=== PATIENT | male | born 1965 | race Caucasian/White ===

== ENCOUNTER 2016-06-14 11:05 | Emergency (ER) | payer MEDICAID ==
[2016-06-14 11:21] VITALS: RESP 18; TEMP 97.9
--- NOTE | 2016-06-14 12:04 | UCPHY ---
H & P Time Seen by Provider: 06/14/16 11:43 Patient Type: Established HPI/ROS: CHIEF COMPLAINT: Headache HISTORY OF PRESENT ILLNESS: This is a 50-year-old man who is been ill with a headache, sinus congestion, fullness in his ears, and postnasal drip for a week. Patient has had no fevers. He has been taking Tylenol with minimal relief. No cough or chest pain. No shortness of breath. No nausea or vomiting. Not the worst headache of his life. Gradual onset. No fever, chills, chest pain, shortness of breath, palpitations, vomiting, diarrhea, urinary complaints, lightheadedness. REVIEW OF SYSTEMS: Aside from elements discussed in the HPI, a comprehensive 10-point review of systems was reviewed and is negative. PAST MEDICAL HISTORY: Hypertension. SOCIAL HISTORY: Smoker. Occasional alcohol use. VITAL SIGNS: see nurse's notes. GENERAL: Well-developed, well-nourished, in no acute distress. Sounds very congested. HEENT: Atraumatic Eyes: PERRL, EOMI, no conjunctival injection. Ears: Bilateral serous otitis. No erythema. Tenderness to percussion over the frontal and maxillary sinuses. Nose: No discharge. Mouth: moist mucous membranes. Pharynx: no erythema, no exudates, no swelling, no abscess. Uvula is midline. NECK: Supple, no adenopathy, no meningismus, no tenderness. Negative Kernig's and Brudzinski's. LUNGS: Clear to auscultation bilaterally, no wheezes, rhonchi or rales. CARDIAC: Regular rate and rhythm, no rubs, murmurs or gallops. ABDOMEN: Soft, nontender, bowel sounds normal. BACK: No CVA tenderness. EXTREMITIES: Normal, no edema, FROM. NEURO: Alert and oriented, grossly nonfocal. SKIN: Warm and dry, no rash. PSYCHIATRIC: Normal mentation, no agitation. Smoking Status: Current every day smoker Constitutional: Initial Vital Signs Temperature (C) 36.6 C 06/14/16 11:19 Heart Rate 49 L 06/14/16 11:19 Respiratory Rate 18 06/14/16 11:19 Blood Pressure 164/101 H 06/14/16 11:19 O2 Sat (%) 97 06/14/16 11:19 O2 Delivery Mode Room Air Allergies/Adverse Reactions: NSAIDS (Non-Steroidal Anti-Inflamma Allergy (Verified 06/14/16 11:18) Sulfa (Sulfonamide Antibiotics) Allergy (Verified 06/14/16 11:18) Home Medications: Medication Instructions Recorded Lexapro 06/28/14 Metoprolol Succinate 06/28/14 Tylenol 325mg (OTC) 09/02/14 Amoxicillin/Clavulanate Pot 875 mg PO BID #14 tab 06/14/16 [Augmentin 875 MG TAB (*)] Hydrocodone/APAP 5/325 [[place] 1 tab PO Q6H PRN #10 tab 06/14/16 5/325 (RX)] Neurontin 06/14/16 traZODone 06/14/16 Medical Decision Making ED Course/Re-evaluation: 50-year-old male presents reporting a headache which has been gradually worsening as his symptoms of nasal congestion, nasal discharge, fullness in his ears, and sore throat have progressed. He was placed on Augmentin and advised to use a decongestant. I suggested he also obtain Flonase nasal spray. Differential Diagnosis: After history was obtained, and the physical exam performed, a differential for the patient's symptom complex was considered including, but not limited to, upper respiratory infection, sinusitis, otitis media, bronchitis, meningitis, encephalitis. Departure - Departure Disposition: Home, Routine, Self-Care Clinical Impression: Headache Qualifiers: Headache type: unspecified Headache chronicity pattern: acute headache Intractability: not intractable Qualified Code(s): R51 - Headache Sinusitis Qualifiers: Sinusitis location: unspecified location Chronicity: acute Recurrence: not specified as recurrent Qualified Code(s): J01.90 - Acute sinusitis, unspecified Condition: Good Instructions: Sinusitis (ED), Acute Headache (ED) Additional Instructions: Please obtain an [id number] decongestant. Ask the pharmacist to guide you to an appropriate decongestant to take with your history of hypertension. Take Flonase nasal spray as directed. Use Tylenol or narcotics for your headache pain. Please take antibiotic as directed. Follow up with your primary care physician days or return to Urgent Care if not improving as expected in the next several days or if you are worse. Referrals: [facility],. [Primary Care Provider] - As per Instructions Prescriptions: Amoxicillin/Clavulanate Pot [Augmentin 875 MG TAB (*)] 875 mg PO BID #14 tab Hydrocodone/APAP 5/325 [[place] 5/325 (RX)] 1 tab PO Q6H PRN #10 tab PRN Reason: Pain - PQRS PQRS Measurement: Not applicable
[2016-06-14 12:13] VITALS: BP 155/67; PULSE 82; O2SAT 95
== END 2016-06-14 12:15 | disposition home or self-care (01) ==
LOC: CED 11:05
DX: R51 Headache (principal); J01.90 Acute sinusitis, unspecified; I10 Essential (primary) hypertension
CPT/HCPCS: 99214-PO; G0463-PO

== ENCOUNTER 2016-08-20 15:48 | Emergency (ER) | payer MEDICAID ==
[2016-08-20] MEDS ORDERED: LORazepam 1 MG TAB PO ONE (16:06)
[2016-08-20 16:07] VITALS: RESP 16; TEMP 99.1; O2SAT 94
--- NOTE | 2016-08-20 16:10 | EDPHY ---
H & P Time Seen by Provider: 08/20/16 15:51 HPI/ROS: CHIEF COMPLAINT: Depression HISTORY OF PRESENT ILLNESS: Patient is a 50-year-old male with a history of PTSD, anxiety and depression who presents to the emergency department suicidal and homicidal thoughts. Patient states he has been undergoing treatment for some time. Over the past week his symptoms have worsened. He states "I am just done with this life." Patient is concerned he will be unable to control himself. "Wrong huong at the right time." He states he would shoot himself if he had access to a firearm. He does not have a gun. He also states that he would type breaks to his foot and up into the leg. He has been taking his medications as directed. He denies any ingestion. He states he has drank alcohol today. He uses marijuana. No other drug use. REVIEW OF SYSTEMS: My complete review of systems is negative except as mentioned in the HPI. Past Medical/Surgical History: Includes PTSD, anxiety, depression, hypertension Past surgical history: Includes cholecystectomy, appendectomy Social history: The patient smokes marijuana. He smokes cigarettes. He uses alcohol. Denies other drug use. Smoking Status: Current every day smoker Physical Exam: GENERAL: Moderate distress. Anxious. Tearful. HEENT: Eyes normal to inspection, normal pharynx, no signs of dehydration. NECK: No thyromegaly, no lymphadenopathy, supple. RESPIRATORY: Clear to auscultation bilaterally, no rales, rhonchi or wheezing. CVS: Regular rate and rhythm, no rubs, murmurs, or gallops. ABDOMEN: Soft, nontender, nondistended, no organomegaly. BACK: Normal to inspection, no CVA tenderness. SKIN: Normal color, no rash, warm, dry. No pallor. EXTREMITIES: No pedal edema, no joint swelling. NEURO/PSYCH: Alert and oriented x3, tearful and anxious, normal motor sensory exam. No obvious cranial nerve deficit. Constitutional: Initial Vital Signs Temperature (C) 37.3 C 08/20/16 15:48 Heart Rate 65 08/20/16 15:48 Respiratory Rate 16 08/20/16 15:48 Blood Pressure 112/70 08/20/16 15:48 O2 Sat (%) 94 08/20/16 15:48 O2 Delivery Mode Room Air Allergies/Adverse Reactions: NSAIDS (Non-Steroidal Anti-Inflamma Allergy (Verified 08/20/16 16:01) Sulfa (Sulfonamide Antibiotics) Allergy (Verified 08/20/16 16:01) Home Medications: Medication Instructions Recorded Lexapro 06/28/14 Metoprolol Succinate 06/28/14 traZODone 06/14/16 Medical Decision Making ED Course/Re-evaluation: In the emergency department I discussed my initial plan with the patient. I discussed treatment options. Patient was given Ativan 1 mg orally. I contacted the [facility] ED director. I was informed that the patient should be transfered to [facility] via PD. I contacted [facility]. Dr. Sood accepted the patient for transfer. PD contacted. The Mental health hold was completed. EMTALA completed. Due to concern for staff safety and limited security in ED, I waited police arrival to inform the patient that he was on a hold. I further informed him that he was being transferred to [facility]. I answered all his questions. Differential Diagnosis: My differential includes but is not limited to anxiety, depression, suicidal ideation, homicidal ideation, alcohol abuse, marijuana use Departure - Departure Disposition: Acute Care Hospital Not [facility] Clinical Impression: Suicidal ideation, Homicidal ideation Condition: [facility]
[2016-08-20 16:58] VITALS: BP 108/77; PULSE 62
== END 2016-08-20 16:40 | disposition short-term general hospital (02) ==
LOC: CED 15:48
DX: R45.851 Suicidal ideations (principal); R45.850 Homicidal ideations; F17.210 Nicotine dependence, cigarettes, uncomplicated; I10 Essential (primary) hypertension

== ENCOUNTER 2016-08-27 16:05 | Observation (INO) | payer MEDICAID ==
--- NOTE | 2016-08-27 16:01 | EDPHY ---
H & P Time Seen by Provider: 08/27/16 16:01 HPI/ROS: CHIEF COMPLAINT: Chest pain HISTORY OF PRESENT ILLNESS: This patient is a 50 year old male who presents to the Emergency Department via EMS complaining of acute onset left-sided chest pain with associated diaphoresis beginning at 1330 today and persisting to the present. He states that he was in a counseling appointment with [facility] when he first felt a twinge to his lower left anterior chest that subsided on its own. Since then, the pain has returned and has been increasing in frequency and severity. At time of arrival, he describes his pain as waxing and waning at moderate severity. The pain is not pleuritic. He has had no chest trauma. He denies cough or shortness of breath. No risk factors for PE. He denies nausea, vomiting, or dyspnea. He states that he feels anxious but reports that this is how he normally feels. Medical history includes PTSD, depression, and anxiety. Cardiac risk factors: The patient admits to smoking one pack of cigarettes daily. He is taking Norvasc for hypertension. He had been taking metoprolol but this was discontinued about a week ago during his stay in a psychiatric facility. He was changed to Norvasc and states that his blood pressure has been poorly controlled since then. No personal or familial history of CAD. REVIEW OF SYSTEMS: A ten point review of systems was performed and is negative with the exception of the items mentioned in the HPI. Source: Patient, EMS - Medical/Surgical History PMH: 1. Anxiety, depression, PTSD 2. Hypertension (Norvasc) 3. Cholecystectomy 4. Appendectomy Prior medical records reviewed. The patient was last seen in the ED one week ago on 08/20 for suicidal ideation and was transferred to [facility] at that time. - Social History Smoking Status: Current every day smoker Additional Social History: - Fiance at bedside. - Currently lives at [facility]. - History of alcohol abuse, narcotic abuse, IV drug abuse. Now drinks 2-3 beers weekly. No illicit drug use. - Smokes marijuana occasionally. - Smokes tobacco regularly. - Physical Exam Exam: General Appearance: Alert. Vital signs reviewed. Blood pressure 170/105. Eyes: Pupils equal and round, no conjunctival injection, no discharge. Anicteric. ENT, Mouth: Mucous membranes are moist, no oropharyngeal erythema or edema. Neck: No lymphadenopathy, supple. Respiratory: Lungs are clear to auscultation; no wheezes, rales, or rhonchi. Cardiovascular: Regular rate and rhythm; no murmur, rub, or gallop. Gastrointestinal: Abdomen is soft and nontender, no masses or organomegaly, bowel sounds normal. Skin: Warm and dry, no rashes on exposed skin, normal color. Back: Nontender to palpation over the thoracolumbar spine. No CVAT. Extremities: No lower extremity edema, no calf tenderness or swelling. Neurological: Alert and oriented. Moving all four extremities easily and equally. Psychiatric: Anxious affect. Slightly agitated, having difficulty staying still, fidgety. Constitutional: Initial Vital Signs Temperature (C) 36.9 C 08/27/16 16:18 Heart Rate 95 08/27/16 16:18 Respiratory Rate 16 08/27/16 16:18 Blood Pressure 170/105 H 08/27/16 16:18 O2 Sat (%) 96 08/27/16 16:18 O2 Delivery Mode Room Air Allergies/Adverse Reactions: NSAIDS (Non-Steroidal Anti-Inflamma Allergy (Verified 08/27/16 16:18) Sulfa (Sulfonamide Antibiotics) Allergy (Verified 08/27/16 16:18) Home Medications: Medication Instructions Recorded Divalproex ER [Depakote ER 500 MG 500 mg PO BID 08/27/16 (*)] Escitalopram Oxalate [Lexapro] 20 mg PO DAILY 08/27/16 Hydrochlorothiazide [HCTZ (*)] 12.5 mg PO DAILY 08/27/16 Hydroxyzine Pamoate [Vistaril] 50 mg PO TID PRN 08/27/16 Propranolol HCl [Inderal 10mg (*)] 10 mg PO DAILY 08/27/16 amLODIPine BESYLATE [Norvasc 10 mg 10 mg PO DAILY 08/27/16 (*)] traZODone [traZODone 150MG (*)] 150 mg PO HS 08/27/16 Acetaminophen [Tylenol 325mg (*)] 650 mg PO Q4HRS PRN #0 tab 08/28/16 Oxycodone HCl 5 mg PO TID PRN #14 capsule 08/28/16 Medical Decision Making - Diagnostics EKG Interpretation: The 12 lead EKG was interpreted by myself: Sinus rhythm, rate 93; baseline artifact; no acute ischemic changes. See hard copy and/or "tracemaster" electronic copy for interpretation. A 2nd EKG was performed when he was slightly less anxious. There continue to be baseline artifact but no acute ischemic changes. ED Course/Re-evaluation: 1609: Took EMS report at bedside. Vitals in transport: BP 140/90, HR 102, O2 sat 97% on RA. Patient remained in sinus tachycardia on wire splicer with no ST elevation. This 50-year-old male presents via EMS with acute onset left-sided chest pain beginning at 1330, approximately three hours prior to arrival. He reports associated diaphoresis but no nausea, dyspnea, or pain radiation. Cardiac risk factor includes daily tobacco use; no personal or familial history of CAD. He has a robust psychiatric history and has been seen in this facility multiple times for suicidal ideation. On presentation, he appears anxious and is tachycardic with normal rhythm. Will proceed with labs, EKG, and chest x-ray. EKG obtained and is non-ischemic. Labs obtained and are unremarkable. Troponin is negative. The patient was administered two doses of Nitroglycerin by RN without improvement to his chest pain. He refused the third dose. Chest x-ray reviewed by Dr. Casas, radiology, I reviewed the images. No acute pulmonary disease. 1726: I discussed imaging, EKG, and lab results with the patient. He remain anxious at his time. 1mg IV Ativan will be administered for anxiety. He describes his pain now as being anterolateral located at the base of his left ribcage. I re-examined him at that site. No rib tenderness, no crepitus. No evidence of skin rash that would indicate shingles. He is moving about in the bed, which both he and his fiancee is typical for him to be fidgety. However, he also reports that he has a history of kidney stone in the remote past. UA ordered to assess for hematuria. He cannot take anti-inflammatory medication because of GI distress. He is trying to avoid any opiates or benzodiazepines because of his history of addiction. He did agree to take some Ativan for his anxiety, which I think will be helpful. 1750: On reevaluation, the patient is less anxious but reports persistent pain to his left ribcage, radiating posteriorly. 1825: The patient is much calmer after receiving Ativan and IV Dilaudid. Will repeat EKG. Urinalysis negative for hematuria. Kidney stone less likely. D-dimer obtained and is 0.25. Risk factors for PE I think that PE is unlikely given his low Wells score. EKG obtained and remains normal. I discussed with the patient the option of returning home to [facility] or admission for cardiac observation. He prefers admission. His chest pain remains unrelieved. At that troponin he had been experiencing pain for about 3 hours. I do feel that repeat troponin is reasonable, however I think it is most likely that his symptoms are related to anxiety. 190: Consultation with Dr. Horan, hospitalist, who accepts admission. Differential Diagnosis: Chest pain including but not limited to anxiety, pneumothorax, myocardial ischemia, pulmonary embolus, chest wall pain, pleural inflammation and pulmonary infectious causes. - Data Points Laboratory Results: Laboratory Results 08/27/16 16:11 08/27/16 16:11 Medications Given: Discontinued Medications Acetaminophen (Tylenol) 1,000 mg PO EDNOW ONE Stop: 08/27/16 18:10 Last Admin: 08/27/16 18:32 Dose: 1,000 mg Amlodipine Besylate (Norvasc) 10 mg PO DAILY SKYE Stop: 02/24/17 08:59 Last Admin: 08/28/16 12:00 Dose: 10 mg Divalproex Sodium (Depakote Er) 500 mg PO BID SKYE Stop: 02/24/17 08:59 Last Admin: 08/28/16 12:00 Dose: 500 mg Hydrochlorothiazide (Microzide) 12.5 mg PO DAILY SKYE Stop: 02/24/17 08:59 Last Admin: 08/28/16 12:00 Dose: 12.5 mg Hydromorphone HCl (Dilaudid) 0.5 mg IVP EDNOW ONE Stop: 08/27/16 17:53 Last Admin: 08/27/16 18:08 Dose: 0.5 mg Hydromorphone HCl (Dilaudid) 0.5 mg IVP EDNOW ONE Stop: 08/27/16 19:28 Last Admin: 08/27/16 19:28 Dose: 0.5 mg Lorazepam (Ativan Injection) 1 mg IVP EDNOW ONE Stop: 08/27/16 17:22 Last Admin: 08/27/16 17:43 Dose: 1 mg Lorazepam (Ativan) 0.5 - 1 mg PO Q4HRS PRN PRN Reason: Anxiety, Able to Take PO Stop: 02/23/17 22:54 Last Admin: 08/28/16 08:30 Dose: 1 mg Miscellaneous Medication (Escitalopram Oxalate [Lexapro]) 20 mg PO DAILY SKYE Stop: 02/24/17 08:59 Last Admin: 08/28/16 12:02 Dose: Not Given Nitroglycerin (Nitrostat) 0.4 mg SL Q5M PRN PRN Reason: Chest Pain Stop: 08/27/16 16:41 Last Admin: 08/27/16 16:51 Dose: 0.4 mg Oxycodone HCl (Oxycodone Ir) 5 - 10 mg PO Q3HRS PRN PRN Reason: Pain, Severe Able to Take PO Stop: 09/06/16 22:54 Last Admin: 08/28/16 09:58 Dose: 10 mg Propranolol HCl (Inderal) 10 mg PO DAILY SKYE Stop: 02/24/17 08:59 Last Admin: 08/28/16 12:00 Dose: 10 mg Departure - Departure Disposition: [facility] Acute Clinical Impression: Atypical chest pain Condition: Good Report Scribed for: Mavis Diaz Report Scribed by: Savanah Gould Date of Report: 08/27/16 Time of Report: 16:01 Physician Review and Approval Statement: 08/27/16 16:01 Portions of this note were transcribed by the medical lab specialist. I, Dr. Mavis Diaz, personally performed the history, physical exam, and medical decision- making; and confirmed the accuracy of the information in the transcribed note.
--- NOTE | 2016-08-27 16:16 | CPEKG ---
Heart Rate: 93 RR Interval: 645 QRSD Interval: 104 QT Interval: 380 QTC Interval: 473 QRS [place]: 94 T Wave [place]: -17 EKG Severity - ABNORMAL ECG - EKG Impression: BORDERLINE RIGHT AXIS DEVIATION EKG Impression: Sinus rhythm EKG Impression: baseline artifact Electronically Signed By: Mavis Diaz 27-Aug-2016 18:32:15
[2016-08-27 16:35] LABS: % IMMATURE GRANULYOCYTES 0.1 % (0.0-1.1); ABSOLUTE IMMATURE GRANULOCYTES 0.01 10^3/uL (0.00-0.10); ADD DIFF? NO; ADD MORPH? NO; ADD SCAN? NO; ATYPICAL LYMPHOCYTE FLAG 30 (0-99); FRAGMENT RBC FLAG 0 (0-99); HEMATOCRIT 51.6 % (40.0-51.0); HEMOGLOBIN 18.5 g/dL (13.7-17.5); LEFT SHIFT FLG 0 (0-99); LIPEMIA HEMOLYSIS FLAG 90 (0-99); MEAN CELL HEMOGLOBIN 33.2 pg (27.9-34.1); MEAN CELL HEMOGLOBIN CONCENTR. 35.9 g/dL (32.4-36.7); MEAN CELL VOLUME 92.5 fL (81.5-99.8); PLATELET CLUMPS FLAG 0 (0-99); PLATELET COUNT 271 10^3/uL (150-400); RED BLOOD CELL COUNT 5.58 10^6/uL (4.40-6.38); RED CELL DISTRIBUTION WIDTH 12.8 % (11.5-15.2)
[2016-08-27 16:39] LABS: ANION GAP 16 mEq/L (8-16); CALCIUM 10.9 mg/dL (8.5-10.4); CARBON DIOXIDE 22 mEq/l (22-31); CHLORIDE 97 mEq/L (97-110); CREATININE 0.8 mg/dL (0.7-1.3); GLOMERULAR FILTRATION RATE > 60; GLUCOSE 87 mg/dL (70-100); POTASSIUM 4.6 mEq/L (3.5-5.2); SODIUM 135 mEq/L (134-144)
[2016-08-27] MEDS: NITROGLYCERIN 0.4 MG BTL SL PRN ×2 (16:46→16:51)
[2016-08-27 16:51] LABS: TROPONIN I < 0.012 ng/mL (0-0.034)
[2016-08-27] MEDS ORDERED: LORazepam 2 MG/ML INJ IVP ONE (17:21)
[2016-08-27] MEDS ORDERED: HYDROmorphONE/DILAUDID 1 MG/ML SYR IVP ONE (17:52)
[2016-08-27] MEDS ORDERED: ACETAMINOPHEN 500 MG TAB PO ONE (18:09)
[2016-08-27 18:17] LABS: COLOR YELLOW
[2016-08-27 18:18] LABS: LEUKOCYTE ESTERASE,URINE NEGATIVE (NEGATIVE); NITRITE,URINE NEGATIVE (NEGATIVE)
--- NOTE | 2016-08-27 18:36 | CPEKG ---
Heart Rate: 89 RR Interval: 674 P-R Interval: 164 QRSD Interval: 126 QT Interval: 396 QTC Interval: 482 P Eden: 59 QRS [place]: 86 T Wave [place]: -32 EKG Severity - ABNORMAL ECG - EKG Impression: SINUS RHYTHM EKG Impression: NONSPECIFIC INTRAVENTRICULAR CONDUCTION DELAY EKG Impression: MINIMAL ST DEPRESSION, INFERIOR LEADS EKG Impression: ARTIFACT Electronically Signed By: Mavis Diaz 28-Aug-2016 01:40:08
[2016-08-27] MEDS ORDERED: HYDROmorphONE/DILAUDID 1 MG/ML SYR ONE (19:14)
[2016-08-27] MEDS ORDERED: HYDROmorphONE/DILAUDID 2 MG/ML INJ IVP ONE (19:27)
[2016-08-27] MEDS ORDERED: ONDANSETRON DISINTEGRATING 4 MG TAB PO PRN (22:55)
[2016-08-27] MEDS ORDERED: ACETAMINOPHEN 325 MG TAB PO PRN (22:55)
[2016-08-27] MEDS ORDERED: ONDANSETRON 4 MG/2 ML VIAL IVP PRN (22:55)
[2016-08-27] MEDS ORDERED: NITROGLYCERIN 0.4 MG BTL SL PRN (22:59)
[2016-08-27] MEDS: LORazepam 0.5 MG TAB PO PRN (23:18)
[2016-08-27] MEDS: oxyCODONE IR 5 MG TAB PO PRN (23:18)
[2016-08-27 23:46] LABS: CREATINE KINASE-MB FRACTION 1.01 ng/mL (0-3.19); TROPONIN I < 0.012 ng/mL (0-0.034)
[2016-08-28] MEDS: oxyCODONE IR 5 MG TAB PO PRN ×3 (01:58→09:58)
--- NOTE | 2016-08-28 01:58 | PDGENHP ---
History and Physical - Chief Complaint chest pain - History of Present Illness Patient is a 50-year-old male with hypertension, PTSD/anxiety disorder who presents to the ED with complaint of left-sided chest pain. Patient states the symptoms initially occurred around 1:00 p.m. while he was sitting in a chair at a counseling session. Described as a twinge in the left side of his chest, nonradiating, sometimes sharp. Over the following several hours, the pain intensified in severity, was waxing and waning in nature, when intense was associated with shortness of breath, palpitations and some dizziness. He does report associated anxiety with the pain, denies LOC/syncope and also denies any recent trauma to the area. he has never experienced this type of pain before, he reports he has never had any extensive cardiac workup in the past. He also denies any recent fevers, chills, cough, congestion, recent travel, nausea, vomiting or diarrhea. Of note, he does report that his metoprolol was recently switched from Norvasc for treatment of his hypertension due to possible side effect of worsening of his depression. On arrival to the ED patient was afebrile hemodynamically stable. Labs revealed normal CBC, BMP and negative troponin. EKG showed sinus rhythm without evidence of obvious ischemia. Chest x-ray was also unremarkable. He was then admitted to the hospital service for further management. History Information - Allergies/Home Medication List Allergies/Adverse Reactions: NSAIDS (Non-Steroidal Anti-Inflamma Allergy (Verified 08/27/16 16:18) Sulfa (Sulfonamide Antibiotics) Allergy (Verified 08/27/16 16:18) Home Medications: Divalproex ER [Depakote ER 500 MG (*)] 500 mg PO BID 08/27/16 [Last Taken 1 tab] Escitalopram Oxalate [Lexapro] 20 mg PO DAILY 08/27/16 [Last Taken 08/27/16] Hydrochlorothiazide [HCTZ (*)] 12.5 mg PO DAILY 08/27/16 [Last Taken 08/27/16] Hydroxyzine Pamoate [Vistaril] 50 mg PO TID PRN 08/27/16 [Last Taken Unknown] Propranolol HCl [Inderal 10mg (*)] 10 mg PO DAILY 08/27/16 [Last Taken 08/27/16] amLODIPine BESYLATE [Norvasc 10 mg (*)] 10 mg PO DAILY 08/27/16 [Last Taken 12/05] traZODone [traZODone 150MG (*)] 150 mg PO HS 08/27/16 [Last Taken 08/26/16] I have personally reviewed and updated: family history, medical history, social history, surgical history - Past Medical History Additional medical history: Hypertension. anxiety disorder. PTSD - Surgical History Additional surgical history: hernia repair. appendectomy. cholecystectomy. shoulder arthroscopy - Family History Additional family history: father: COPD. mother: CVA - Social History Smoking Status: Current every day smoker (1PPD x 20 years) Alcohol Use: Rarely Drug Use: Marijuana ( occasional) Review of Systems ROS: 10pt was reviewed & negative except for what was stated in HPI & below Physical Exam Temp Pulse Resp BP Pulse Ox 36.7 C 81 18 128/86 H 92 08/28/16 00:33 08/28/16 00:33 08/28/16 00:33 08/28/16 00:33 08/28/16 00:33 O2 (L/minute) 2 Constitutional: no apparent distress, appears nourished, not in pain Eyes: PERRL, anicteric sclera, EOMI Ears, Nose, Mouth, Throat: moist mucous membranes, hearing normal, ears appear normal, no oral mucosal ulcers Cardiovascular: regular rate and rhythym, no murmur, rub, or gallop, pulses symmetric bilaterally, other (no chest wall tenderness or gross deformity), No JVD, No edema Peripheral Pulses: 2+: dorsalis-pedis (R), dorsalis-pedis (L) Respiratory: no respiratory distress, no rales or rhonchi, clear to auscultation Gastrointestinal: normoactive bowel sounds, soft, non-tender abdomen, no palpable masses, No guarding, No rebound, No distension Genitourinary: no bladder fullness, no bladder tenderness Skin: warm, normal color, no rashes or abrasions, no fluctuance, no induration, No mottled Musculoskeletal: full muscle strength, no muscle tenderness, normal joint ROM, no joint effusions Neurologic: AAOx3, sensation intact bilaterally, CN II-XII Intact, No weakness, No numbness, No facial droop Psychiatric: interacting appropriately, not encephalopathic, thought process linear, anxious Lab Data & Imaging Review 08/27/16 16:11 08/27/16 16:11 WBC 7.80 10^3/uL (3.80-9.50) 08/27/16 16:11 RBC 5.58 10^6/uL (4.40-6.38) 08/27/16 16:11 Hgb 18.5 g/dL (13.7-17.5) H 08/27/16 16:11 Hct 51.6 % (40.0-51.0) H 08/27/16 16:11 MCV 92.5 fL (81.5-99.8) 08/27/16 16:11 MCH 33.2 pg (27.9-34.1) 08/27/16 16:11 MCHC 35.9 g/dL (32.4-36.7) 08/27/16 16:11 RDW 12.8 % (11.5-15.2) 08/27/16 16:11 Plt Count 271 10^3/uL (150-400) 08/27/16 16:11 MPV 11.0 fL (8.7-11.7) 08/27/16 16:11 Neut % (Auto) 46.1 % (39.3-74.2) 08/27/16 16:11 Lymph % (Auto) 39.0 % (15.0-45.0) 08/27/16 16:11 [place] % (Auto) 11.0 % (4.5-13.0) 08/27/16 16:11 Eos % (Auto) 2.6 % (0.6-7.6) 08/27/16 16:11 Baso % (Auto) 1.2 % (0.3-1.7) 08/27/16 16:11 Nucleat RBC Rel Count 0.0 % (0.0-0.2) 08/27/16 16:11 Absolute Neuts (auto) 3.60 10^3/uL (1.70-6.50) 08/27/16 16:11 Absolute Lymphs (auto) 3.04 10^3/uL (1.00-3.00) H 08/27/16 16:11 Absolute Monos (auto) 0.86 10^3/uL (0.30-0.80) H 08/27/16 16:11 Absolute Eos (auto) 0.20 10^3/uL (0.03-0.40) 08/27/16 16:11 Absolute Basos (auto) 0.09 10^3/uL (0.02-0.10) 08/27/16 16:11 Absolute Nucleated RBC 0.00 10^3/uL (0-0.01) 08/27/16 16:11 Immature Gran % 0.1 % (0.0-1.1) 08/27/16 16:11 Immature Gran # 0.01 10^3/uL (0.00-0.10) 08/27/16 16:11 D-Dimer 0.27 ug/mLFEU (0.00-0.50) 08/27/16 16:15 Sodium 135 mEq/L (134-144) 08/27/16 16:11 Potassium 4.6 mEq/L (3.5-5.2) 08/27/16 16:11 Chloride 97 mEq/L (97-110) 08/27/16 16:11 Carbon Dioxide 22 mEq/l (22-31) 08/27/16 16:11 Anion Gap 16 mEq/L (8-16) 08/27/16 16:11 BUN 15 mg/dL (7-23) 08/27/16 16:11 Creatinine 0.8 mg/dL (0.7-1.3) 08/27/16 16:11 Estimated GFR > 60 08/27/16 16:11 Glucose 87 mg/dL (70-100) 08/27/16 16:11 Calcium 10.9 mg/dL (8.5-10.4) H 08/27/16 16:11 Phosphorus 3.1 mg/dL (2.5-4.5) 08/27/16 16:11 CK-MB (CK-2) Fraction 1.01 ng/mL (0-3.19) 08/27/16 23:10 Troponin I < 0.012 ng/mL (0-0.034) 08/27/16 23:10 Urine Color YELLOW 08/27/16 17:40 Urine Appearance CLEAR 08/27/16 17:40 Urine pH 7.0 (5.0-7.5) 08/27/16 17:40 Ur Specific [place] 1.012 (1.002-1.030) 08/27/16 17:40 Urine Protein NEGATIVE (NEGATIVE) 08/27/16 17:40 Urine Ketones 1+ (NEGATIVE) H 08/27/16 17:40 Urine Blood NEGATIVE (NEGATIVE) 08/27/16 17:40 Urine Nitrate NEGATIVE (NEGATIVE) 08/27/16 17:40 Urine Bilirubin NEGATIVE (NEGATIVE) 08/27/16 17:40 Urine Urobilinogen NEGATIVE EU (0.2-1.0) 08/27/16 17:40 Ur Leukocyte Esterase NEGATIVE (NEGATIVE) 08/27/16 17:40 Urine Glucose NEGATIVE (NEGATIVE) 08/27/16 17:40 Visualized and Interpreted Chest x-ray results: Yes Chest X-Ray results: no infiltrate Visualized and Interpreted EKG results: Yes EKG Interpretation: Positive for: normal sinsus rhythm (no st/t wave abnormalities) Assessment & Plan Assessment: Patient is a 50 year old male with HTN, anxiety disorder who presents to the ED with complaint of acute onset, atypical L sided chest pain. Initial ED evaluation reveals negative initial troponin, nonischemic EKG, but given patient 's age, positive smoking history, is being admitted for further evaluation of his chest pain. Plan: # chest pain Patient's description of the pain is atypical for cardiac etiology (sharp, pleuritic, worse with movement/deep inspiration). Cardiac risk factors include longstanding tobacco use, age. Differential also includes pleurisy, GI/GERD, musculoskeletal etiology vs related to his underlying anxiety. Negative d-dimer has ruled out PE. - trend troponins, monitor serial EKGs - check lipid panel, TSH, TTE - if ACS ruled out, perform exercise stress for full risk stratification - SL nitro, IV morphine prn pain # chronic hypertension Patient's home BP meds was recently switched from metoprolol to norvasc. BP stable on presentation today. Will continue home med. # anxiety disorder/PTSD Patient had recent hospitalization for inpatient psychiatric treatment at [facility] last week. Today he reports anxiety, but denies SI/HI, mood/ affect appear appropriate. Will confirm and continue home meds. # dispO: admit to observation status for chest pain work up #gen: NPO after midnight DVT ppx: low risk Full code
[2016-08-28] MEDS: LORazepam 0.5 MG TAB PO PRN ×2 (04:04→08:30)
[2016-08-28 05:03] LABS: % IMMATURE GRANULYOCYTES 0.3 % (0.0-1.1); ABSOLUTE IMMATURE GRANULOCYTES 0.02 10^3/uL (0.00-0.10); ADD DIFF? NO; ADD MORPH? NO; ADD SCAN? NO; ATYPICAL LYMPHOCYTE FLAG 10 (0-99); FRAGMENT RBC FLAG 0 (0-99); HEMOGLOBIN 16.3 g/dL (13.7-17.5); LEFT SHIFT FLG 0 (0-99); LIPEMIA HEMOLYSIS FLAG 90 (0-99); MEAN CELL HEMOGLOBIN 32.5 pg (27.9-34.1); MEAN CELL HEMOGLOBIN CONCENTR. 34.7 g/dL (32.4-36.7); MEAN CELL VOLUME 93.8 fL (81.5-99.8); MEAN PLATELET VOLUME 11.2 fL (8.7-11.7); PLATELET CLUMPS FLAG 0 (0-99); PLATELET COUNT 216 10^3/uL (150-400); RED BLOOD CELL COUNT 5.01 10^6/uL (4.40-6.38); RED CELL DISTRIBUTION WIDTH 13.1 % (11.5-15.2)
[2016-08-28 05:14] LABS: ANION GAP 5 mEq/L (8-16); CALCIUM 9.5 mg/dL (8.5-10.4); CARBON DIOXIDE 26 mEq/l (22-31); CHLORIDE 101 mEq/L (97-110); CHOLESTEROL 186 mg/dL (140-220); CHOLESTEROL/HDL RATIO 5.17 RATIO (1.00-4.97); CREATININE 0.8 mg/dL (0.7-1.3); GLOMERULAR FILTRATION RATE > 60; GLUCOSE 84 mg/dL (70-100); HIGH DENSITY LIPOPROTEIN 36 mg/dL (40-65); LDL/HDL RATIO 3.47 RATIO (1.00-3.64); LOW DENSITY LIPOPROTEIN 125 mg/dL (80-100); NON-HIGH DENSITY LIPOPROTEIN 150 mg/dL (90-129); POTASSIUM 4.5 mEq/L (3.5-5.2); SODIUM 132 mEq/L (134-144); TRIGLYCERIDE 129 mg/dL (40-150); VERY LOW DENSITY LIPOPROTEINS 25 mg/dL (8-25)
[2016-08-28 05:45] LABS: INR 1.01 (0.83-1.16); PROTIME(PATIENT) 13.2 SEC (12.0-15.0)
[2016-08-28 05:46] LABS: APTT 30.9 SEC (23.0-38.0)
[2016-08-28 06:04] LABS: CREATINE KINASE-MB FRACTION 1.64 ng/mL (0-4.55); TROPONIN I < 0.012 ng/mL (0-0.034)
[2016-08-28 08:14] VITALS: BP 151/94; PULSE 68; RESP 14; TEMP 97.8; O2SAT 92
--- NOTE | 2016-08-28 08:48 | CPEKG ---
Heart Rate: 60 RR Interval: 1000 P-R Interval: 176 QRSD Interval: 106 QT Interval: 424 QTC Interval: 424 P Elburn: 64 QRS Elburn: 91 T Wave Elburn: 14 EKG Severity - BORDERLINE ECG - EKG Impression: SINUS RHYTHM EKG Impression: PROBABLE LEFT ATRIAL ABNORMALITY Electronically Signed By: Thien Leonard 28-Aug-2016 09:00:22
[2016-08-28] MEDS ORDERED: NON-FORMULARY NEW DRUG (Hydroxyzine Pamoate [Vistaril] 50 MG) PO PRN (08:49)
[2016-08-28] MEDS ORDERED: hydrOXYzine HCL 50 MG TAB PO PRN (08:59)
[2016-08-28] MEDS ORDERED: HYDROCHLOROTHIAZIDE 12.5 MG CAP PO SCH (09:00)
[2016-08-28] MEDS ORDERED: NON-FORMULARY NEW DRUG (Escitalopram Oxalate [Lexapro] 20 MG) PO SCH (09:00)
[2016-08-28] MEDS ORDERED: DIVALPROEX ER 500 MG TAB PO SCH (09:00)
[2016-08-28] MEDS ORDERED: PROPRANOLOL HCL 10 MG TAB PO SCH (09:00)
--- NOTE | 2016-08-28 10:39 | ECHO ---
[id number] + + [address] : : [place] [address] : : [phone] + + Adult Echocardiographic Report + ---+ :Name: DAVIS CARUSO MStudy Date: 08/28/2016 07:24 AM : : Hospital Admission Number: [id number] Location: 203: :: 1965 Gender: Male Height: 69 in : :Age: 50 yrs Race: WH Weight: 179 lb : :Reason For Study: Chest pain : : BSA: 2.0 meters2 : :History: HTN : + ---+ MMode/2D Measurements \T\ Calculations IVSd: 1.2 cm LVIDd: 4.6 cm FS: 33.5 % Ao root diam: LVPWd: 1.0 cm LVIDs: 3.1 cm EDV(Teich): 3.8 cm 97.2 ml LA dimension: ESV(Teich): 3.9 cm 36.7 ml EF(Teich): 62.3 % LVLd ap4: 8.7 cm SV(MOD-sp4): EDV(MOD-sp4): 51.0 ml 82.0 ml LVLs ap4: 7.1 cm ESV(MOD-sp4): 31.0 ml EF(MOD-sp4): 62.2 % Normal Measurement Values: + + :LVIDd (3.5-5.7cm) IVSd (0.6-1.1cm) LVPWd (0.6-1.1cm) Aortic Root (2.0-3.7cm)Left Atrium (1.5-4.0cm): :LV Vol(d) (76-115ml) LV Vol(s) (29-48ml) Ejec Fraction (50-65%)PV John (0.6- 1.2m/s) TV John (0.4-1.0m/s) : :MV E John (0.8-1.0m/s)MV A John (0.3-1.0m/s)LVOT John (0.7-1.2m/s) Asc Ao John ( 0.9-1.8m/s) : + + Doppler Measurements \T\ Calculations MV E max john: 57.8 cm/sec Ao V2 max: 96.4 cm/sec MV A max john: 52.8 cm/sec Ao max P.7 mmHg MV E/A: 1.1 Left Ventricle The left ventricle is normal in size and function. There is normal left ventricular wall thickness. Left ventricular systolic function is normal. Ejection Fraction = 70-75%. No regional wall motion abnormalities noted. Right Ventricle The right ventricle is normal in size and function. Atria The left atrial size is normal. Right atrial size is normal. The interatrial septum is intact with no evidence for an atrial septal defect. Mitral Valve The mitral valve is normal in structure and function. There is no evidence of mitral valve prolapse. There is no mitral valve stenosis. There is trace to mild mitral regurgitation. Tricuspid Valve Normal tricuspid valve. There is trace tricuspid regurgitation. Aortic Valve The aortic valve is trileaflet. The aortic valve opens well. There is no aortic stenosis. There is no aortic insufficiency. Pulmonic Valve The pulmonic valve is not well visualized. There is no pulmonic valvular regurgitation. Great Vessels The aortic root is normal size. Pericardium/Pleural There is no pericardial effusion. Conclusion A complete two-dimensional transthoracic echocardiogram was performed (2D, M-mode, Doppler and color flow Doppler). The left ventricle is normal in size and function. Left ventricular systolic function is normal. Ejection Fraction = 70-75%. There is trace to mild mitral regurgitation. There is trace tricuspid regurgitation. Final Reading Physician: Thien Leonard MD electronically signed on 08/28/2016 10:38 AM Ordering Physician: Clarisa Lindsay Performed By: Joan Galvan RDCS
--- NOTE | 2016-08-28 10:49 | PDCARST ---
CAR Stress Test Results Type of Stress Test: TM stress test Indication: cp Description of Procedure: After informed consent was obtained, pt was exercised according to Miky Protocol. Monitoring was performed with standard stress can vacuum tester electrode placement. Vital signs were monitored according to protocol throughout the procedure. STRESS EKG AND HEMODYNAMIC DATA. Exercise time: 8 min. This is equivalent to: 9.1 METS. Resting heart rate: 82 bpm. Resting blood pressure: 130/90 mmHg. Resting O2 saturation: 95 %. Peak heart rate: 143 bpm. This is 85% of age predicted maximum heart rate response. Peak blood pressure: 192/100 mmHg. Exercise O2: 92%. Arrhythmias: Rare PVC. Reason for termination: The test was stopped due to maximal effort. Symptoms: The patient experienced no typical symptoms of angina during stress or recovery. Pt did experience sharp L axillary cp that was reproduceable with chest wall palpation. STRESS TEST ANALYSIS. Baseline ECG: SR with LVH with diffuse STabn. Stress ECG: normal ECG with exercise. exercise induced ischemic ECG changes: No. Rhythm: rare PVCnoted during exercise and recovery. Blood pressure: normal blood pressure. Mild hypertensive response to exercise. Exercise tolerance: The patient has normal exercise tolerance adjusted for age and gender. Symptoms: Atypical symptoms. Impression: MPRESSIONS: Stress ECG is negative for ischemia. The Wadsworth Treadmill Score is consistent with low cardiovascular risk (<1% annual mortality). Pt had atypical cp. Conclusion: Likely noncardiac cp.
--- NOTE | 2016-08-28 11:21 | PDDCSUM ---
Discharge Summary Discharge Summary: Dates of service 08/27-08/28/16 Discharge diagnosis: # chest pain # HTN # anxiety/PTSD Consultation: none Procedures performed: echo, treadmill stress test Hospital course by problem # chest pain: atypical by description, serial trops and ecg's all without e/o ischemia, echocardiogram with normal EF, no wall motion abnormality, no valvular issues. Treadmill stress non ischemic and low risk. Sxs remain but all in all seem more c/w musculoskeletal abnormality with pain somewhat reproducible with palpation and description of what sounds like neuropathic pain. Given short course of vicodin (paitient unable to take NSAIDS) and plan is for patient to f/u with PCP if pain continues # HTN: for the most part well controlled on home regimen of hctz/propranolol/ amlodipine--had a couple of mildly elevated readings here but not consistent enough to warrant immediate change in meds # anxiety/ptsd: patient currently in an IP treatment center for these issues, he feels optimistic that he is going to be able to turn things around for himself around this Dc home--currently in treatment at [facility] f/u with PCP > 45 minutes spent in dc of patient, more than half in face to face counseling regarding dx and f/u care plans
== END 2016-08-28 14:02 | disposition home or self-care (01) ==
LOC: EDUNIT# → F2W 20:23
PROVIDERS: ADMIT Internal Medicine; ATTEND Internal Medicine
DX: R07.9 Chest pain, unspecified (principal); I10 Essential (primary) hypertension; F43.10 Post-traumatic stress disorder, unspecified; F17.210 Nicotine dependence, cigarettes, uncomplicated
CPT/HCPCS: 71020; 93005; 93017; 93306; G0378; 96374; J1170; J2060

== ENCOUNTER 2016-09-04 23:09 | Emergency (ER) | payer MEDICAID ==
--- NOTE | 2016-09-04 23:17 | CPEKG ---
Heart Rate: 78 RR Interval: 769 P-R Interval: 172 QRSD Interval: 112 QT Interval: 408 QTC Interval: 465 P Diamond: 79 QRS Diamond: 96 T Wave Diamond: -44 EKG Severity - ABNORMAL ECG - EKG Impression: SINUS RHYTHM EKG Impression: LEFT POSTERIOR FASCICULAR BLOCK EKG Impression: MINIMAL ST DEPRESSION, INFERIOR LEADS Electronically Signed By: Kamaljit Rios 05-Sep-2016 06:44:44
--- NOTE | 2016-09-04 23:22 | EDPHY ---
H & P Stated Complaint: headache and chest pain since 2pm; not taking his meds for 3 days,from [facility] HPI/ROS: HPI CHIEF COMPLAINT: Hypertension, anxiety, headache, pain all over HISTORY OF PRESENT ILLNESS: This patient very pleasant 50-year-old male, presents emergency room by EMS from [facility] after states he [facility] "[facility] the past 24-48 hours. He states he has not taken his blood pressure medication in 2-3 days. Patient tells me that his blood pressures been reading high and this been giving him headache. He states he is normally compliant his blood pressure medication however since he has not been ordered house he has not had access to it. Tells me since missing it for few days he has developed a headache. No nausea, no vomiting. Denies chest pain to me but did mention chest pain in route EMS. Refuse nitroglycerin. His main complaint is pain all over his body, feeling anxious and headache. Tells me gets like this when he misses his blood pressure medication He tells me takes Norvasc, propanolol, HCTZ. Of note he did have a recent chest pain admission on August 27 to August 28 where he had a negative exercise treadmill stress test, normal echocardiogram Past Medical History: Anxiety, PTSD, hypertension, recent chest pain admission in August Past Surgical History: No recent surgery Social History: Denies daily use of drugs, alcohol, tobacco lives at [facility] Family History: Noncontributory ROS REVIEW OF SYSTEMS: A comprehensive 10 point review of systems is otherwise negative aside from elements mentioned in the history of present illness. Exam Constitutional appears well nontoxic triage nursing summary reviewed, vital signs reviewed, awake/alert. Eyes normal conjunctivae and sclera, EOMI, PERRLA. HENT normal inspection, atraumatic, moist mucus membranes, no epistaxis, neck supple/ no meningismus, no raccoon eyes. Respiratory clear to auscultation bilaterally, normal breath sounds, no respiratory distress, no wheezing. Cardiovascular rate normal, regular rhythm, no murmur, no edema, distal pulses normal. Gastrointestinal soft, non-tender, no rebound, no guarding, normal bowel sounds, no distension, no pulsatile mass. Genitourinary no CVA tenderness. Musculoskeletal no midline vertebral tenderness, full range of motion, no calf swelling, no tenderness of extremities, no meningismus, good pulses, neurovascularly intact. Skin pink, warm, & dry, no rash, skin atraumatic. Neurologic awake, alert and oriented x 3, AAOx3, moves all 4 extremities equally, motor intact, sensory intact, CN II-XII intact, normal cerebellar, normal vision, normal speech. Psychiatric normal mood/affect. Heme/Lymph/Immune no lymphadenopathy. Differential Diagnosis: Includes but is not limited to in a particular order, hypertensive urgency, hypertensive emergency, anxiety, medication noncompliance. Medical Decision Making: Plan for this patient IV establishment, full alarm security or surveillance monitor, I will given p.o. blood pressure medication clotting Norvasc and HCTZ. Patient be given 1 mg IV Ativan for anxiety. Check EKG check troponin check basic blood work. Re-evaluation: EKG interpretation by me on record in [employer] system. Impression time of EKG: This is 2315, sinus rhythm rate of 78 when I compare this to patient's old EKG on August 27 of this month very similar morphology. I do not appreciate any new acute ischemic changes. This EKG did a read minimal ST depression in inferior leads. However when I compare this to his previous EKG looks very similar. 2352: Blood work has been reviewed at this time as well as x-ray. Negative troponin. Normal chest x-ray. Nonischemic EKG. Patient ordered p. o. home BP medicines will re-evaluate shortly. 1248 a.m.: Patient resting comfortably feels much better after IV Ativan. 0133AM: Patient is resting comfortably at this time he denies chest pain or shortness of breath. States headache greatly improved. Blood pressures come down to 160 systolic over 106 diastolic. HR at 79. He is requesting discharge. He lives at [facility]. Will be discharged 2 [facility]. He has blood pressure medication Leblanc do encourage him to have a strict regimen with his home blood pressure medication. He understands if he has very high blood pressure chest pain or shortness of breath return emergency room. Feels much better after IV Ativan p.o. home blood pressure medications. Blood work has been reviewed no evidence of kidney damage, no elevated troponin. Nonischemic EKG. He would like to be discharged to [facility]. Source: Patient - Personal History Tetanus Vaccine Date: < 10 years - Medical/Surgical History Hx Asthma: No Hx Chronic Respiratory Disease: No Hx Diabetes: No Hx Cardiac Disease: No Hx Renal Disease: No Hx Cirrhosis: No Hx Alcoholism: Yes Hx HIV/AIDS: No Hx Splenectomy or Spleen Trauma: No Other PMH: ETOH, HTN,ptsd,depression and anxiety, appy,cholesystectomy,r shoulder reconstruction - Social History Smoking Status: Current every day smoker Constitutional: Initial Vital Signs Temperature (C) 36.5 C 09/04/16 23:15 Heart Rate 80 09/04/16 23:15 Respiratory Rate 20 09/04/16 23:15 Blood Pressure 175/135 H 09/04/16 23:15 O2 Sat (%) 95 09/04/16 23:15 O2 Delivery Mode Room Air Allergies/Adverse Reactions: NSAIDS (Non-Steroidal Anti-Inflamma Allergy (Verified 08/27/16 16:18) Sulfa (Sulfonamide Antibiotics) Allergy (Verified 08/27/16 16:18) Home Medications: Medication Instructions Recorded Divalproex ER [Depakote ER 500 MG 500 mg PO BID 08/27/16 (*)] Escitalopram Oxalate [Lexapro] 20 mg PO DAILY 08/27/16 Hydrochlorothiazide [HCTZ (*)] 12.5 mg PO DAILY 08/27/16 Hydroxyzine Pamoate [Vistaril] 50 mg PO TID PRN 08/27/16 Propranolol HCl [Inderal 10mg (*)] 10 mg PO DAILY 08/27/16 amLODIPine BESYLATE [Norvasc 10 mg 10 mg PO DAILY 08/27/16 (*)] traZODone [traZODone 150MG (*)] 150 mg PO HS 08/27/16 Acetaminophen [Tylenol 325mg (*)] 650 mg PO Q4HRS PRN #0 tab 08/28/16 Oxycodone HCl 5 mg PO TID PRN #14 capsule 08/28/16 Medical Decision Making - Diagnostics Imaging Results: Imaging Impressions Chest X-Ray 09/04/16 23:24 IMPRESSION: No evidence for acute cardiopulmonary abnormality. - Data Points Laboratory Results: Laboratory Results 09/04/16 23:14 09/04/16 23:14 09/04/16 09/04/16 09/04/16 23:14 23:14 23:14 WBC 10.98 10^3/uL H 10^3/uL (3.80-9.50) RBC 5.04 10^6/uL 10^6/uL (4.40-6.38) Hgb 16.1 g/dL g/dL (13.7-17.5) Hct 45.2 % % (40.0-51.0) MCV 89.7 fL fL (81.5-99.8) MCH 31.9 pg pg (27.9-34.1) MCHC 35.6 g/dL g/dL (32.4-36.7) RDW 12.3 % % (11.5-15.2) Plt Count 278 10^3/uL 10^3/uL (150-400) MPV 11.0 fL fL (8.7-11.7) Neut % (Auto) 61.4 % % (39.3-74.2) Lymph % (Auto) 26.7 % % (15.0-45.0) [place]uckolls % (Auto) 10.4 % % (4.5-13.0) Eos % (Auto) 0.4 % L % (0.6-7.6) Baso % (Auto) 0.7 % % (0.3-1.7) Nucleat RBC Rel Count 0.0 % % (0.0-0.2) Absolute Neuts (auto) 6.75 10^3/uL H 10^3/uL (1.70-6.50) Absolute Lymphs (auto) 2.93 10^3/uL 10^3/uL (1.00-3.00) Absolute Monos (auto) 1.14 10^3/uL H 10^3/uL (0.30-0.80) Absolute Eos (auto) 0.04 10^3/uL 10^3/uL (0.03-0.40) Absolute Basos (auto) 0.08 10^3/uL 10^3/uL (0.02-0.10) Absolute Nucleated RBC 0.00 10^3/uL 10^3/uL (0-0.01) Immature Gran % 0.4 % % (0.0-1.1) Immature Gran # 0.04 10^3/uL 10^3/uL (0.00-0.10) PT 13.5 SEC SEC (12.0-15.0) INR 1.04 (0.83-1.16) APTT 27.4 SEC SEC (23.0-38.0) Sodium 131 mEq/L L mEq/L (134-144) Potassium 3.5 mEq/L mEq/L (3.5-5.2) Chloride 99 mEq/L mEq/L (97-110) Carbon Dioxide 18 mEq/l L mEq/l (22-31) Anion Gap 14 mEq/L mEq/L (8-16) BUN 8 mg/dL mg/dL (7-23) Creatinine 0.6 mg/dL L mg/dL (0.7-1.3) Estimated GFR > 60 Glucose 101 mg/dL H mg/dL (70-100) Calcium 10.1 mg/dL mg/dL (8.5-10.4) Magnesium 2.0 mg/dL mg/dL (1.6-2.3) Total Bilirubin 0.8 mg/dL mg/dL (0.1-1.4) Conjugated Bilirubin 0.3 mg/dL mg/dL (0.0-0.5) Unconjugated Bilirubin 0.5 mg/dL mg/dL (0.0-1.1) AST 29 IU/L IU/L (17-59) ALT 48 IU/L IU/L (21-72) Alkaline Phosphatase 77 IU/L IU/L (38-126) Creatine Kinase 120 IU/L IU/L (0-224) CK-MB (CK-2) Fraction 0.91 ng/mL ng/mL (0-3.19) Troponin I < 0.012 ng/mL ng/mL (0-0.034) NT-Pro-B Natriuret Pep 193 pg/mL H pg/mL (0-125) Total Protein 7.5 g/dL g/dL (6.3-8.2) Albumin 4.5 g/dL g/dL (3.5-5.0) Lipase 136.0 IU/L IU/L (23-300) Medications Given: Discontinued Medications Amlodipine Besylate (Norvasc) 10 mg PO EDNOW ONE Stop: 09/04/16 23:29 Last Admin: 09/04/16 23:45 Dose: 10 mg Sodium Chloride (Ns) 500 mls @ 1,000 mls/hr IV ONCE ONE PRN Reason: Protocol Stop: 09/04/16 23:52 Last Admin: 09/04/16 23:35 Dose: 500 mls Lorazepam (Ativan Injection) 1 mg IVP EDNOW ONE Stop: 09/04/16 23:30 Last Admin: 09/04/16 23:35 Dose: 1 mg Lorazepam (Ativan Injection) 1 mg IVP EDNOW ONE Stop: 09/05/16 00:48 Last Admin: 09/05/16 00:50 Dose: 1 mg Departure - Departure Disposition: Home, Routine, Self-Care Clinical Impression: Anxiety Hypertension Qualifiers: Hypertension type: essential hypertension Qualified Code(s): I10 - Essential ( primary) hypertension Condition: Good Instructions: Hypertension (ED), Anxiety (ED) Referrals: ALLAN ADKINS [Other] - As per Instructions
[2016-09-04] MEDS ORDERED: NS 500 ML IV ONE (23:23)
[2016-09-04 23:28] LABS: % IMMATURE GRANULYOCYTES 0.4 % (0.0-1.1); ABSOLUTE IMMATURE GRANULOCYTES 0.04 10^3/uL (0.00-0.10); ADD DIFF? NO; ADD MORPH? NO; ADD SCAN? NO; ATYPICAL LYMPHOCYTE FLAG 0 (0-99); FRAGMENT RBC FLAG 0 (0-99); HEMATOCRIT 45.2 % (40.0-51.0); HEMOGLOBIN 16.1 g/dL (13.7-17.5); LEFT SHIFT FLG 0 (0-99); LIPEMIA HEMOLYSIS FLAG 90 (0-99); MEAN CELL HEMOGLOBIN 31.9 pg (27.9-34.1); MEAN CELL HEMOGLOBIN CONCENTR. 35.6 g/dL (32.4-36.7); MEAN CELL VOLUME 89.7 fL (81.5-99.8); PLATELET CLUMPS FLAG 0 (0-99); PLATELET COUNT 278 10^3/uL (150-400); RED BLOOD CELL COUNT 5.04 10^6/uL (4.40-6.38); RED CELL DISTRIBUTION WIDTH 12.3 % (11.5-15.2)
[2016-09-04] MEDS ORDERED: LORazepam 2 MG/ML INJ IVP ONE (23:29)
[2016-09-04] MEDS ORDERED: HYDROCHLOROTHIAZIDE 25 MG TAB PO SCH (23:30)
[2016-09-04 23:35] LABS: ALANINE AMINOTRANSFERASE 48 IU/L (21-72); ALBUMIN 4.5 g/dL (3.5-5.0); ALKALINE PHOSPHATASE 77 IU/L (38-126); ANION GAP 14 mEq/L (8-16); ASPARTATE AMINOTRANSFERASE 29 IU/L (17-59); BILIRUBIN,TOTAL 0.8 mg/dL (0.1-1.4); BILIRUBIN-CONJUGATED 0.3 mg/dL (0.0-0.5); BILIRUBIN-UNCONJUGATED 0.5 mg/dL (0.0-1.1); CALCIUM 10.1 mg/dL (8.5-10.4); CARBON DIOXIDE 18 mEq/l (22-31); CHLORIDE 99 mEq/L (97-110); CREATININE 0.6 mg/dL (0.7-1.3); GLOMERULAR FILTRATION RATE > 60; GLUCOSE 101 mg/dL (70-100); POTASSIUM 3.5 mEq/L (3.5-5.2); SODIUM 131 mEq/L (134-144); TOTAL PROTEIN 7.5 g/dL (6.3-8.2)
[2016-09-04 23:41] LABS: INR 1.04 (0.83-1.16); PROTIME(PATIENT) 13.5 SEC (12.0-15.0)
[2016-09-04 23:42] LABS: APTT 27.4 SEC (23.0-38.0)
[2016-09-04 23:46] LABS: CREATINE KINASE-MB FRACTION 0.91 ng/mL (0-3.19); TROPONIN I < 0.012 ng/mL (0-0.034)
[2016-09-05] MEDS ORDERED: LORazepam 2 MG/ML INJ IVP ONE (00:47)
[2016-09-05 01:04] VITALS: TEMP 98.2
[2016-09-05 01:44] VITALS: BP 163/106; PULSE 76; RESP 18; O2SAT 95
== END 2016-09-05 01:43 | disposition home or self-care (01) ==
LOC: EDUNIT#
DX: F41.9 Anxiety disorder, unspecified (principal); I10 Essential (primary) hypertension; F17.200 Nicotine dependence, unspecified, uncomplicated
CPT/HCPCS: 96374; J2060